=== PATIENT | male | born 1965 | race Caucasian/White ===

== ENCOUNTER 2016-10-17 20:16 | Emergency (ER) | payer MEDICAID, OTHER ==
[~2016-10-17] VITALS: Wt 85.5 kg
[2016-10-17] MEDS ORDERED: KETOROLAC 15 MG INJ IM STA (21:29)
[2016-10-17] MEDS ORDERED: DIAZEPAM 5 MG TAB PO ONE (21:30)
--- NOTE | 2016-10-17 22:20 | RADRPT ---
PROCEDURE: XR Cervical Spine. CLINICAL INDICATION: Cervical spine pain. TECHNIQUE: AP, lateral and odontoid views of the cervical spine were performed. The images were re viewed on a PACS workstation. COMPARISON: None available FINDINGS: There is trace retrolisthesis of C5 on C6. There are small anterior osteophytes with mild to modera te narrowing at C5-6 and C6-7 and mild disc-space narrowing at C4-5. There are moderate facet mota es at C5-6 and C6-7. The vertebral body height and osseous mineralization are normal. There is no e vidence of fracture or dislocation. There is diffuse mild facet arthropathy. There is preservation o f the remaining intervertebral disc spaces. There are no abnormal calcifications. The prevertebral s oft tissues are normal. No radiopaque foreign bodies are identified. IMPRESSION: 1. Moderate degenerative disc disease at C5-6 with grade 1 retrolisthesis. 2. Diffuse mild facet spondylosis. 3. No evidence of acute fracture. RPTAT: HGAS .Óscar Ramirez MD, Date Time Electronically viewed and signed by .Óscar Ramirez MD, on 10/17/2016 22:19 .S/
[2016-10-17] MEDS ORDERED: NAPR-260 PO (23:19)
--- NOTE | 2016-10-17 23:19 | ERD ---
ER Documentation Chief Complaint Date/Time DATE: 10/17/16 TIME: 23:05 Chief Complaint Headache X3 days HPI This pleasant 50-year-old male patient presents to emergency department with headache 3 days Patient reports occipital headache radiating to neck, soft tissue, patient reports that he woke up with a stiff neck and has progressively worsened. 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 Patient has tried over- the-counter 800 mg Motrin with little relief of symptoms. Patient denies any visual changes, changes in appetite, nausea or vomiting. Patient denies that this is the worst headache that he has ever had, denies knowing the exact onset are causation of symptoms. ROS All systems reviewed and are negative except as per history of present illness. Medications Home Meds No Active Prescriptions or Reported Meds Allergies Allergies: Coded Allergies: No Known Allergies (Verified Allergy, Mild, 01/22/14) PMhx/Soc History of Surgery: Yes (APPENDECTOMY) Anesthesia Reaction: No Hx Neurological Disorder: No Hx Respiratory Disorders: No Hx Cardiac Disorders: No Hx Psychiatric Problems: No Hx Miscellaneous Medical Probl: No (no medical hx) Hx Alcohol Use: Yes (once per year) Hx Substance Use: No Hx Tobacco Use: Yes (up to 10 cigs per day) Smoking Status: Light tobacco smoker Physical Exam Vitals Vital Signs Date Time Temp Pulse Resp B/P Pulse Ox O2 Delivery O2 Flow Rate FiO2 10/17/16 20:52 100.6 110 20 165/79 98 Vitals stable, triage notes reviewed Physical Exam Const: No acute distress Head: Atraumatic Eyes: Conjunctiva clear, PERRLA, EOMI ENT: Normal External Ears, Nose and Mouth. Neck: Abnormal cervical range of motion decreased rotation and lateral bending, decrease hyperextension, flexion without pain. Palpable paraspinal tenderness, trapezial tenderness, Resp: Clear to auscultation bilaterally Cardio: Regular rate and rhythm, no murmurs Abd: Soft, non tender, non distended. Normal bowel sounds Skin: No petechiae or rashes Back: No midline or flank tenderness Ext: No cyanosis, or edema Neur: Speech is clear, pupils equal round and reactive to light and accommodation, sensation to light touch is intact bilaterally. There is no pronator drift. Finger to nose test is intact bilaterally. Batterboard Setter strength is 5/ 5. Flexion and extension is intact bilaterally Psych: Normal Mood and Affect Results 24 hrs Current Medications Medications (Trade) Dose Ordered Sig/Sofia Route PRN Reason Start Time Stop Time Status Last Admin Dose Admin Ketorolac Tromethamine (Toradol) 15 mg ONCE STAT IM 10/17/16 21:29 10/17/16 21:31 DC 10/17/16 22:20 Diazepam (Valium) 5 mg ONCE ONCE PO 10/17/16 21:30 10/17/16 21:31 DC 10/17/16 22:20 Procedures/MDM This pleasant male patient presents to emergency department for 3 day cervical pain and occipital headache. Patient denies injury, reports working with stiff neck, patient has no visual change, denies change in behavior, denies dizziness , nausea or vomiting, patient reports difficulty performing ADLs, and difficulty sleeping, tried 800 mg ibuprofen with little relief of symptoms. Low suspicion for subarachnoid bleed, migraine, or meningitis. Patient treated with Toradol, Valium, with improvement of symptoms. Patient will be discharged home with Naprosyn, Valium, and instructions for comfort care, alternating heat and ice, making sure pillow is pulled all the way under neck to shoulders while sleeping. Return to emergency department for change in vision, nausea, vomiting , headache not responding to treatment. I feel the patient is stable for discharge at this time outpatient management by primary care physician. I have discussed results, examination findings, the treatment plan with the patient and family present prior to discharge. Indications for emergent reevaluation, side effects of medication were also discussed. All questions were answered. Patient verbalizes understanding and agrees with plan of care. Departure Diagnosis: Primary Impression: Headache Headache type: unspecified Headache chronicity pattern: acute headache Intractability: not intractable Qualified Code: R51 - Acute nonintractable headache, unspecified headache type Additional Impression: Acute cervical sprain Encounter type: initial encounter Qualified Code: S13.9XXA - Acute cervical sprain, initial encounter Condition: Good Patient Instructions: Neck Sprain/Strain, Self-Care for Headaches Additional Instructions: Thank you for for coming to [facility] for your care today. Please ask your nurse or provider if you have questions about your care today and do not leave until all your questions have been answered. Please use any medications given as directed and follow-up with your doctor (or the doctor you were referred to) in the next 2-3 days. If you do not have a primary care doctor you may follow up at the [facility] (listed below). You may also use motrin and tylenol as needed for fever and/or pain unless instructed otherwise by your provider or nurse. Indications for more urgent follow-up have been discussed, but you may return to the Emergency Department at ANY time for any worrisome or worsening symptoms. If you have abdominal pain, please know that no test or exam you received is perfect and you should follow up within 8 hours for continued pain. If you had any imaging studies today, such as an X-Ray or CT Scan, these studies will be reviewed later by a radiologist. You will be called if there are important findings that were not identified today, so make sure the contact information you provided at registration is correct. If you received any narcotic pain control medicine today, such as Vicodin, Morphine or Dilaudid, your coordination and judgment may be affected for a number of hours. Please do not drive or operate heavy machinery, and you may want someone to assist you at home. If you were given a prescription for narcotic medication, be aware that it is very addictive- use sparingly and only if necessary. JESUS COLES Oct 17, 2016 23:16
[2016-10-17] MEDS ORDERED: DIAZ-90 PO (23:20)
[2016-10-17 23:33] VITALS: BP 122/75; PULSE 88; RESP 18
== END 2016-10-17 23:34 | disposition home or self-care (01) ==
LOC: FTE 20:16
DX: R51 Headache (principal); S13.9XXA Sprain of joints and ligaments of unspecified parts of neck, initial encounter; F17.210 Nicotine dependence, cigarettes, uncomplicated; X58.XXXA Exposure to other specified factors, initial encounter; Y92.9 Unspecified place or not applicable
CPT/HCPCS: 72040; J1885; Z7610; 96372

== ENCOUNTER 2018-06-13 08:26 | Emergency (ER) | payer OTHER ==
[~2018-06-13] VITALS: Wt 89.0 kg
[~2018-06-13 08:26] MED LIST: DIAZ5TAB PO; NAPR-985 PO
[2018-06-13 08:35] VITALS: BP 140/69; PULSE 89; RESP 18
[2018-06-13] MEDS ORDERED: MUPI22OI2 TOP (09:05)
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
[2018-06-13] MEDS ORDERED: DIPHTH/TET/ACEL PERTUSS (ADULT) 0.5 ML VIAL IM* ONE (09:30)
[2018-06-13] MEDS ORDERED: MUPIROCIN 2% 22 GM OINT TOP ONE (09:30)
== END 2018-06-13 10:10 | disposition home or self-care (01) ==
LOC: FTE 08:26
DX: T24.232A Burn of second degree of left lower leg, initial encounter (principal); X10.2XXA Contact with fats and cooking oils, initial encounter; Y92.9 Unspecified place or not applicable; Z87.891 Personal history of nicotine dependence
CPT/HCPCS: 90715; Z7610; 90471